=== PATIENT | female | born 1975 | race Hispanic/Latino ===

== ENCOUNTER 2016-07-24 12:58 | Outpatient (RCR) | payer OTHER ==
[2016-07-22 11:46] VITALS: BP 94/54
[2016-07-22] MEDS: IRON SUCROSE 300 MG/NS 250 ML (IVPB) IV SCH ×2 (12:24)
[~2016-07-24] VITALS: Ht 157.5 cm; Wt 50.8 kg
[~2016-07-24 12:58] MED LIST: BIRTH CONTROL PO; FERR325C PO; HYDR-757 PO; IBUP-15 PO; IBUP-1773 PO; NF-KET2% TOP; OMEP-10 PO; PNT40TEC PO; PRM25T PO
[2016-07-24 13:04] VITALS: BP 104/63
[2016-07-24] MEDS: IRON SUCROSE 300 MG/NS 250 ML (IVPB) IV SCH ×2 (13:22)
[2016-07-24 14:20] VITALS: BP 104/63
== END 2016-10-20 | disposition home or self-care (01) ==
LOC: SDC 12:58
PROVIDERS: ATTEND Nurse Practitioner Adult Health
DX: D50.9 Iron deficiency anemia, unspecified (principal)
CPT/HCPCS: 96365; 96366

== ENCOUNTER 2017-01-09 05:31 | Outpatient (CLI) | payer OTHER ==
[~2017-01-09] VITALS: Ht 157.5 cm; Wt 49.4 kg
[2017-01-09] MEDS ORDERED: TOPI50TA37 PO ×2 (13:41)
[2017-01-09] MEDS ORDERED: IRON1CAP21 PO ×2 (13:41)
[2017-01-09] MEDS ORDERED: PANT40TA3 PO ×2 (13:41)
== END 2017-01-09 13:59 ==
LOC: PREOP 05:31
PROVIDERS: ATTEND Surgery
DX: Z01.818 Encounter for other preprocedural examination (principal); K21.9 Gastro-esophageal reflux disease without esophagitis

== ENCOUNTER 2017-01-13 06:53 | Day surgery (SDC) | payer OTHER ==
[~2017-01-13] VITALS: Ht 157.5 cm; Wt 49.4 kg
[~2017-01-13 06:53] MED LIST changes: +IRON1CAP21 PO; +PANT40TA3 PO; +TOPI50TA37 PO
[2017-01-13] MEDS ORDERED: LACTATED RINGERS 1,000 ML IV STA (07:32)
--- NOTE | 2017-01-13 07:43 | Progress Note-Pre Operative ---
Pre-Operative Progress Note H&P Reviewed The H&P was reviewed, patient examined and no changes noted. Date Seen by Provider: Jan 13, 2017 Time Seen by Provider: 07:42 Date H&P Reviewed: Jan 13, 2017 Time H&P Reviewed: 07:42 Pre-Operative Diagnosis: gerd, dysphagia JEFFREY PEREZ DO Jan 13, 2017 07:43
[2017-01-13] MEDS ORDERED: HURRICAINE EXT TUBE (BENZOCAINE) XX PRN (07:45)
[2017-01-13 07:47] VITALS: BP 94/63
[2017-01-13] MEDS ORDERED: proPOfol 200 MG/20 ML (DIPRIVAN) VIAL IV ONE (08:26)
[2017-01-13] MEDS ORDERED: LIDOCAINE PF 2% 5 ML (XYLOCAINE) VIAL ONE (08:28)
--- NOTE | 2017-01-13 08:56 | Progress Note-Post Operative ---
Post-Operative Progess Note Surgeon (s)/Oracle Fusion Consultant (s) Surgeon JEFFREY PEREZ DO Oracle Fusion Consultant: na Pre-Operative Diagnosis gerd, dysphagia Post-Operative Diagnosis small hiatal hernia Procedure & Operative Findings Date of Procedure 01/13/17 Procedure Performed/Findings egd c biopsy antrum Anesthesia Type per appliquer Estimated Blood Loss Estimated blood loss (mL): scant Specimens/Packing Specimens Removed antrum JEFFREY PEREZ DO Jan 13, 2017 8:56 am
--- NOTE | 2017-01-13 08:57 | Discharge Inst-Simple/Standard ---
Discharge Inst-Standard Patient Instructions/Follow Up Plan of Care/Instructions/FU: 2 weeks [place]on Activity as Tolerated: Yes Discharge Diet: Regular Diet JEFFREY PEREZ DO Jan 13, 2017 8:57 am
[2017-01-13 09:15] VITALS: BP 107/71
[2017-01-13 09:45] VITALS: BP 101/66
[2017-01-13 10:10] VITALS: BP 101/66
--- NOTE | 2017-01-13 10:41 | OPERATIVE REPORT ---
DATE OF SERVICE: 01/13/2017 PREOPERATIVE DIAGNOSIS: Dysphagia, GERD. POSTOPERATIVE DIAGNOSIS: Small hiatal hernia. PROCEDURES: Esophagogastroduodenoscopy with biopsy of the antrum. SURGEON: Jeffery Simental DO ANESTHESIA: Per RESIDENT PHYSICIAN. ESTIMATED BLOOD LOSS: Scant. INDICATIONS: The patient is a 41-year-old female who was having some dysphagia and some reflux symptoms. She understands risks and benefits of the procedure and wished to proceed with procedure. Consent was signed in the chart. PROCEDURE: The patient was taken to the endoscopy suite, placed in left lateral recumbent position. Timeout was performed. Scope was inserted in mouth, down into esophagus, stomach and into the duodenum without difficulty. There are no polyps, masses or ulcerations within the duodenum. The scope was slowly retracted back into the stomach and was further insufflated. Has fairly normal appearance of the stomach. Biopsy of the antrum was obtained. Scope was retroflexed noting a small hiatal hernia. No other pathology noted. Scope was returned to its normal position, slowly withdrawn back into the esophagus. There are no erythematous changes, polyps, masses or ulcerations. Scope was slowly retracted back until completely removed, noting no other pathology. RECOMMENDATIONS: The patient will continue on Protonix. Will have her follow up in two weeks to discuss pathology. We will see how her symptoms are on pathology. Further recommendations pending those results. Job ID: [id number] DocumentID: [id number] Dictated Date: 01/13/2017 08:59:05 Wafer Batter Mixer Date: 01/13/2017 10:40:59 Dictated By: JEFFREY SIMENTAL DO
== END 2017-01-13 10:10 | disposition home or self-care (01) ==
LOC: ENDO 06:53
PROVIDERS: ATTEND Surgery
DX: K44.9 Diaphragmatic hernia without obstruction or gangrene (principal); K21.9 Gastro-esophageal reflux disease without esophagitis; Z79.899 Other long term (current) drug therapy
CPT/HCPCS: 84703

== ENCOUNTER 2017-07-22 05:38 | Outpatient (CLI) | payer OTHER ==
[~2017-07-22] VITALS: Ht 157.5 cm; Wt 49.4 kg
[~2017-07-22 05:38] MED LIST changes: -IBUP-15 PO; +IBUP-16 PO
== END 2017-07-22 15:53 ==
LOC: PREOP 05:38
PROVIDERS: ATTEND Surgery
DX: Z01.818 Encounter for other preprocedural examination (principal); K92.1 Melena

== ENCOUNTER 2017-07-28 08:09 | Day surgery (SDC) | payer OTHER ==
[~2017-07-28] VITALS: Ht 157.5 cm; Wt 49.4 kg
[2017-07-28] MEDS ORDERED: LACTATED RINGERS 1,000 ML IV STA (08:23)
[2017-07-28] MEDS ORDERED: LACTATED RINGERS 1,000 ML IV ONE (08:24)
[2017-07-28] MEDS ORDERED: LACTATED RINGERS 1,000 ML IV SCH (08:30)
[2017-07-28 08:37] VITALS: BP 100/66
[2017-07-28] MEDS ORDERED: MIDAZOLAM 2 MG/2 ML (VERSED) VIAL ONE (09:09)
[2017-07-28] MEDS ORDERED: PROPOFOL INJECTION 50 ML IV ONE (09:09)
--- NOTE | 2017-07-28 09:22 | Progress Note-Pre Operative ---
Pre-Operative Progress Note H&P Reviewed The H&P was reviewed, patient examined and no changes noted. Date Seen by Provider: Jul 28, 2017 Time Seen by Provider: 23:52 Date H&P Reviewed: Jul 28, 2017 Time H&P Reviewed: 23:52 Pre-Operative Diagnosis: blood in stool, anal fissure, abnormal ct finding JEFFREY PEREZ DO Jul 28, 2017 09:22
--- NOTE | 2017-07-28 10:03 | Progress Note-Post Operative ---
Post-Operative Progess Note Surgeon (s)/Professor Of Medicine (s) Surgeon JEFFREY PEREZ DO Professor Of Medicine: na Pre-Operative Diagnosis blood in stool, anal fissure, abnormal ct finding Post-Operative Diagnosis anal fissure post Procedure & Operative Findings Date of Procedure 07/28/17 Procedure Performed/Findings colonoscopy Anesthesia Type per corporation pilot Estimated Blood Loss Estimated blood loss (mL): na Specimens/Packing Specimens Removed na JEFFREY PEREZ DO Jul 28, 2017 10:03
[2017-07-28 10:05] VITALS: BP 91/55
--- NOTE | 2017-07-28 10:10 | Discharge Inst-Simple/Standard ---
Discharge Inst-Standard Patient Instructions/Follow Up Plan of Care/Instructions/FU: 2 weeks Hol[place] Continue Diltiazem cream as instructed. High fiber diet. Stool softner twice a day, Over the counter. Activity as Tolerated: Yes Discharge Diet: Regular Diet JEFFREY PEREZ DO Jul 28, 2017 10:10
[2017-07-28 10:35] VITALS: BP 102/62
[2017-07-28 10:50] VITALS: BP 102/62
--- NOTE | 2017-07-28 11:51 | Anesthesia-General Post-Op ---
MAC Patient Condition Mental Status/LOC: Same as Preop Cardiovascular: Satisfactory Nausea/Vomiting: Absent Respiratory: Satisfactory Pain: Controlled Complications: Absent Post Op Complications Complications None Follow Up Care/Instructions Patient Instructions None needed. Anesthesiology Discharge Order Discharge Order Patient is doing well, no complaints, stable vital signs, no apparent adverse anesthesia problems. No complications reported per nursing. RAFAEL FLEMING CRNA Jul 28, 2017 11:51
--- NOTE | 2017-07-28 13:17 | OPERATIVE REPORT ---
DATE OF SERVICE: 07/28/2017 PREOPERATIVE DIAGNOSES: Anal fissure, abnormal CT scan findings of colon and blood in stools. POSTOPERATIVE DIAGNOSIS: Anal fissure. PROCEDURE: Colonoscopy. SURGEON: Jeffrey Simental DO ANESTHESIA: Per PLASTER MODEL AND MOLD MAKER. ESTIMATED BLOOD LOSS: None. COMPLICATIONS: None. INDICATIONS: The patient is a 41-year-old female, who has been having problems with anal fissure and blood in stools. She had a recent CT scan demonstrating some abnormality of the ascending colon, but she understands risks and benefits of procedure and wished to proceed with procedure. Consent was on chart. DESCRIPTION OF PROCEDURE: The patient was taken to the endoscopy suite, placed in left lateral recumbent position. Timeout was performed. Digital rectal exam was performed. There was a posterior anal fissure present with also skin tag formation. No other palpable polyps, masses or ulcerations. Scope was inserted in the rectum and advanced all the way to the cecum with minimal difficulty. Prep was adequate. Scope was slowly retracted back. There are no polyps, mass ulcerations in the cecum, ascending, transverse, descending and sigmoid colon. In the rectum, the scope was retroflexed noting small tag. No other pathology. Scope was returned to its normal position, slowly withdrawn to completely remove. No other pathology noted when scope was completely removed. The patient tolerated procedure well without complications and taken to recovery room in stable condition. RECOMMENDATIONS: The patient will recommend high-fiber diet and stool softener. Continue on diltiazem cream. We will have followup in 2 weeks to discuss how she is doing at that point and if further intervention needed. Job ID: [id number] DocumentID: [id number] Dictated Date: 07/28/2017 10:14:14 Interactive Media Director Date: 07/28/2017 13:16:06 Dictated By: JEFFREY SIMENTAL DO
== END 2017-07-28 10:51 | disposition home or self-care (01) ==
LOC: ENDO 08:09
PROVIDERS: ATTEND Surgery
DX: K60.2 Anal fissure, unspecified (principal); K64.4 Residual hemorrhoidal skin tags; D64.9 Anemia, unspecified; Z79.899 Other long term (current) drug therapy
CPT/HCPCS: 84703

== ENCOUNTER 2017-10-15 05:33 | Outpatient (CLI) | payer OTHER ==
[~2017-10-15] VITALS: Ht 157.5 cm; Wt 52.2 kg
[2017-10-15] MEDS ORDERED: CETI10TA17 PO (10:22)
[2017-10-22] MEDS ORDERED: ACHD5005 PO (11:08)
[2017-10-22] MEDS ORDERED: IBUP-1773 PO (11:08)
== END 2017-10-15 10:37 ==
LOC: PREOP 05:33
PROVIDERS: ATTEND Obstetrics & Gynecology
DX: Z01.818 Encounter for other preprocedural examination (principal); N93.9 Abnormal uterine and vaginal bleeding, unspecified

== ENCOUNTER 2017-10-22 10:01 | Day surgery (SDC) | payer OTHER ==
[~2017-10-22] VITALS: Ht 157.5 cm; Wt 52.2 kg
[~2017-10-22 10:01] MED LIST changes: +CETI10TA17 PO
--- OUTSIDE RECORDS SUMMARY | 2017-10-22 10:06 | XMS REPORT | Continuity of Care Document ---
Author Author [facility] Organization [facility] Address Unknown Phone Unavailable Allergies Active Description Code Type Severity Reaction Onset Reported/Identified Relationship to Patient Clinical Status Yes No Known Drug Allergies [id number] Drug Allergy Unknown N/A 01/04/2014 Yes sumatriptan [id number] Drug Allergy Unknown throat felt swo 12/06/2014 Medications There is no data. Problems Date Dx Coded Attending Type Code Diagnosis Diagnosed By 03/09/2014 NOÉ JOSHUA DO Ot 626.9 MENSTRUAL DISORDER NOS 03/09/2014 NOÉ JOSHUA DO Ot 793.5 NOSP (ABN) FINDINGS ON RADIOLOGICAL OT 04/21/2014 Ot 626.8 04/21/2014 Ot 793.5 04/21/2014 Ot V72.63 04/21/2014 Ot V74.8 04/21/2014 Ot 626.8 04/21/2014 Ot 793.5 04/21/2014 Ot V72.63 04/21/2014 Ot V74.8 04/21/2014 NOÉ JOSHUA DO Ot 625.0 05/19/2014 NOÉ JOSHUA DO Ot 625.0 05/19/2014 Ot 626.8 05/19/2014 Ot 793.5 05/19/2014 Ot V72.63 05/19/2014 Ot V74.8 11/28/2014 NOÉ JOSHUA DO Ot 625.0 11/28/2014 Ot 626.8 11/28/2014 Ot 793.5 11/28/2014 Ot V72.63 11/28/2014 Ot V74.8 12/01/2014 NOÉ JOSHUA DO Ot 625.0 12/01/2014 Ot 626.8 12/01/2014 Ot 793.5 12/01/2014 Ot V72.63 12/01/2014 Ot V74.8 12/01/2014 NOÉ JOSHUA DO Ot 625.0 12/01/2014 Ot 626.8 12/01/2014 Ot 793.5 12/01/2014 Ot V72.63 12/01/2014 Ot V74.8 12/05/2014 NOÉ JOSHUA DO Ot 621.2 12/05/2014 NOÉ JOSHUA DO Ot 626.9 12/07/2014 NOÉ JOSHUA DO Ot 625.8 FEM GENITAL SYMPTOMS NEC 12/07/2014 NOÉ JOSHUA DO Ot 626.9 MENSTRUAL DISORDER NOS 12/15/2014 NOÉ JOSHUA DO Ot 625.8 12/15/2014 NOÉ JOSHUA DO Ot V72.63 12/15/2014 NOÉ JOSHUA DO Ot V74.8 02/05/2015 NOÉ JOSHUA DO Ot 621.2 02/05/2015 NOÉ JOSHUA DO Ot 626.9 02/05/2015 NOÉ JOSHUA DO Ot 625.8 02/05/2015 NOÉ JOSHUA DO Ot V72.63 02/05/2015 NOÉ JOSHUA DO Ot V74.8 03/14/2016 NOÉ JOSHUA DO Ot 625.0 DYSPAREUNIA 03/14/2016 Ot 626.8 MENSTRUAL DISORDER NEC 03/14/2016 Ot 793.5 NOSP (ABN) FINDINGS ON RADIOLOGICAL OT 03/14/2016 Ot V72.63 PRE- PROCEDURAL LABORATORY EXAMINATION 03/14/2016 Ot V74.8 SCREEN- BACTERIAL DIS NEC 03/14/2016 NOÉ JOSHUA DO Ot 621.2 HYPERTROPHY OF UTERUS 03/14/2016 NOÉ JOSHUA DO Ot 626.9 MENSTRUAL DISORDER NOS 03/14/2016 NOÉ JOSHUA DO Ot 625.8 FEM GENITAL SYMPTOMS NEC 03/14/2016 NOÉ JOSHUA DO Ot V72.63 PRE-PROCEDURAL LABORATORY EXAMINATION 03/14/2016 NOÉ JOSHUA DO Ot V74.8 SCREEN-BACTERIAL DIS NEC 03/14/2016 NOÉ JOSHUA DO Ot 625.0 DYSPAREUNIA 03/14/2016 Ot 626.8 MENSTRUAL DISORDER NEC 03/14/2016 Ot 793.5 NOSP (ABN) FINDINGS ON RADIOLOGICAL OT 03/14/2016 Ot V72.63 PRE- PROCEDURAL LABORATORY EXAMINATION 03/14/2016 Ot V74.8 SCREEN- BACTERIAL DIS NEC 03/14/2016 NOÉ JOSHUA DO Ot 621.2 HYPERTROPHY OF UTERUS 03/14/2016 NOÉ JOSHUA DO Ot 626.9 MENSTRUAL DISORDER NOS 03/14/2016 NOÉ JOSHUA DO Ot 625.8 FEM GENITAL SYMPTOMS NEC 03/14/2016 NOÉ JOSHUA DO Ot V72.63 PRE-PROCEDURAL LABORATORY EXAMINATION 03/14/2016 NOÉ JOSHUA DO Ot V74.8 SCREEN-BACTERIAL DIS NEC 03/17/2016 JANN DAVIS MANAGER CARDIAC Ot R30.0 DYSURIA 03/17/2016 JANN DAVIS MANAGER CARDIAC Ot R30.0 DYSURIA 03/18/2016 JANN DAVIS MANAGER CARDIAC Ot R30.0 DYSURIA 03/31/2016 JANN DAVIS MANAGER CARDIAC Ot R30.0 DYSURIA 03/31/2016 JANN DAVIS MANAGER CARDIAC Ot R30.0 DYSURIA 07/22/2016 NOÉ JOSHUA DO Ot 625.0 DYSPAREUNIA 07/22/2016 Ot 626.8 MENSTRUAL DISORDER NEC 07/22/2016 Ot 793.5 NOSP (ABN) FINDINGS ON RADIOLOGICAL OT 07/22/2016 Ot V72.63 PRE- PROCEDURAL LABORATORY EXAMINATION 07/22/2016 Ot V74.8 SCREEN- BACTERIAL DIS NEC 07/22/2016 NOÉ JOSHUA DO Ot 621.2 HYPERTROPHY OF UTERUS 07/22/2016 NOÉ JOSHUA DO Ot 626.9 MENSTRUAL DISORDER NOS 07/22/2016 NOÉ JOSHUA DO Ot 625.8 FEM GENITAL SYMPTOMS NEC 07/22/2016 NOÉ JOSHUA DO Ot V72.63 PRE-PROCEDURAL LABORATORY EXAMINATION 07/22/2016 NOÉ JOSHUA DO Ot V74.8 SCREEN-BACTERIAL DIS NEC 07/22/2016 JANN DAVIS MANAGER CARDIAC Ot R30.0 DYSURIA 07/24/2016 VALDEMAR VALDIVIA COAGULATING OPERATOR Ot D50.9 IRON DEFICIENCY ANEMIA, UNSPECIFIED 07/24/2016 VALDEMAR VALDIVIA COAGULATING OPERATOR Ot D50.9 IRON DEFICIENCY ANEMIA, UNSPECIFIED 07/24/2016 VALDEMAR VALDIVIA COAGULATING OPERATOR Ot D50.9 IRON DEFICIENCY ANEMIA, UNSPECIFIED 10/20/2016 VALDEMAR VALDIVIA COAGULATING OPERATOR Ot D50.9 IRON DEFICIENCY ANEMIA, UNSPECIFIED 10/21/2016 VALDEMAR VALDIVIA COAGULATING OPERATOR Ot D50.9 IRON DEFICIENCY ANEMIA, UNSPECIFIED 12/24/2016 NOÉ JOSHUA DO Ot 625.0 DYSPAREUNIA 12/24/2016 Ot 626.8 MENSTRUAL DISORDER NEC 12/24/2016 Ot 793.5 NOSP (ABN) FINDINGS ON RADIOLOGICAL OT 12/24/2016 Ot V72.63 PRE- PROCEDURAL LABORATORY EXAMINATION 12/24/2016 Ot V74.8 SCREEN- BACTERIAL DIS NEC 12/24/2016 NOÉ JOSHUA DO Ot 621.2 HYPERTROPHY OF UTERUS 12/24/2016 NOÉ JOSHUA DO S Ot 626.9 MENSTRUAL DISORDER NOS 12/24/2016 NOÉ JOSHUA DO Ot 625.8 FEM GENITAL SYMPTOMS NEC 12/24/2016 NOÉ JOSHUA DO Ot V72.63 PRE-PROCEDURAL LABORATORY EXAMINATION 12/24/2016 NOÉ JOSHUA DO Ot V74.8 SCREEN-BACTERIAL DIS NEC 12/24/2016 JANN DAVIS APRN Ot R30.0 DYSURIA 12/24/2016 VALDEMAR VALDIVIA Ot D50.9 IRON DEFICIENCY ANEMIA, UNSPECIFIED 01/09/2017 JEFFREY PEREZ DO Ot K21.9 GASTRO-ESOPHAGEAL REFLUX DISEASE WITHOUT 01/09/2017 JEFFREY PEREZ DO D Ot Z01.818 ENCOUNTER FOR OTHER PREPROCEDURAL EXAMIN 01/12/2017 PEREZJEFFREY WORTHINGTON DO Ot K21.9 GASTRO-ESOPHAGEAL REFLUX DISEASE WITHOUT 01/12/2017 PEREZJEFFREY WORTHINGTON DO Ot Z01.818 ENCOUNTER FOR OTHER PREPROCEDURAL EXAMIN 01/13/2017 JEFFREY PEREZ DO Ot K21.9 GASTRO-ESOPHAGEAL REFLUX DISEASE WITHOUT 01/13/2017 JEFFREY PEREZ DO Ot K44.9 DIAPHRAGMATIC HERNIA WITHOUT OBSTRUCTION 01/13/2017 JEFFREY PEREZ DO Ot Z79.899 OTHER HAMMERSMITH HELPER (CURRENT) DRUG THERAPY 03/04/2017 NOÉ JOSHUA DO Ot 625.0 DYSPAREUNIA 03/04/2017 Ot 626.8 MENSTRUAL DISORDER NEC 03/04/2017 Ot 793.5 NOSP (ABN) FINDINGS ON RADIOLOGICAL OT 03/04/2017 Ot V72.63 PRE- PROCEDURAL LABORATORY EXAMINATION 03/04/2017 Ot V74.8 SCREEN- BACTERIAL DIS NEC 03/04/2017 NOÉ JOSHUA DO Ot 621.2 HYPERTROPHY OF UTERUS 03/04/2017 NOÉ JOSHUA DO Ot 626.9 MENSTRUAL DISORDER NOS 03/04/2017 NOÉ JOSHUA DO Ot 625.8 FEM GENITAL SYMPTOMS NEC 03/04/2017 NOÉ JOSHUA DO Ot V72.63 PRE-PROCEDURAL LABORATORY EXAMINATION 03/04/2017 NOÉ JOSHUA DO Ot V74.8 SCREEN-BACTERIAL DIS NEC 03/04/2017 JANN DAVIS MANAGER CARDIAC Ot R30.0 DYSURIA 03/04/2017 VALDEMAR VALDIVIA COAGULATING OPERATOR Ot D50.9 IRON DEFICIENCY ANEMIA, UNSPECIFIED 05/11/2017 NOÉ JOSHUA DO Ot D50.0 IRON DEFICIENCY ANEMIA SECONDARY TO BLOO 05/11/2017 NOÉ JOSHUA DO Ot N92.0 EXCESSIVE AND FREQUENT MENSTRUATION WITH 07/22/2017 JEFFREY PEREZ DO Ot K92.1 MELENA 07/22/2017 JEFFREY PEREZ DO Ot Z01.818 ENCOUNTER FOR OTHER PREPROCEDURAL EXAMIN 07/23/2017 JEFFREY PEREZ DO Ot K92.1 MELENA 07/23/2017 JEFFREY PEREZ DO Ot Z01.818 ENCOUNTER FOR OTHER PREPROCEDURAL EXAMIN 07/28/2017 NOÉ JOSHUA DO Ot 625.0 DYSPAREUNIA 07/28/2017 Ot 626.8 MENSTRUAL DISORDER NEC 07/28/2017 Ot 793.5 NOSP (ABN) FINDINGS ON RADIOLOGICAL OT 07/28/2017 Ot V72.63 PRE- PROCEDURAL LABORATORY EXAMINATION 07/28/2017 Ot V74.8 SCREEN- BACTERIAL DIS NEC 07/28/2017 NOÉ JOSHUA DO Ot 621.2 HYPERTROPHY OF UTERUS 07/28/2017 NOÉ JOSHUA DO Ot 626.9 MENSTRUAL DISORDER NOS 07/28/2017 NOÉ JOSHUA DO Ot 625.8 FEM GENITAL SYMPTOMS NEC 07/28/2017 NOÉ JOSHUA DO Ot V72.63 PRE-PROCEDURAL LABORATORY EXAMINATION 07/28/2017 NOÉ JOSHUA DO Ot V74.8 SCREEN-BACTERIAL DIS NEC 07/28/2017 JANN DAVIS MANAGER CARDIAC Ot R30.0 DYSURIA 07/28/2017 VALDEMAR VALDIVIA COAGULATING OPERATOR Ot D50.9 IRON DEFICIENCY ANEMIA, UNSPECIFIED 07/28/2017 NOÉ JOSHUA DO Ot D50.0 IRON DEFICIENCY ANEMIA SECONDARY TO BLOO 07/28/2017 NOÉ JOSHUA DO Ot N92.0 EXCESSIVE AND FREQUENT MENSTRUATION WITH 07/28/2017 PEREZ DO, JEFFREY D Ot D64.9 ANEMIA, UNSPECIFIED 07/28/2017 PEREZ DO, JEFFREY D Ot K60.2 ANAL FISSURE, UNSPECIFIED 07/28/2017 PEREZ DO, JEFFREY D Ot K64.4 RESIDUAL HEMORRHOIDAL SKIN TAGS 07/28/2017 PEREZ DO, JEFFREY D Ot Z79.899 OTHER HAMMERSMITH HELPER (CURRENT) DRUG THERAPY 07/29/2017 PEREZ DO, JEFFREY D Ot D64.9 ANEMIA, UNSPECIFIED 07/29/2017 PEREZ DO, JEFFREY D Ot K60.2 ANAL FISSURE, UNSPECIFIED 07/29/2017 PEREZ DO, JEFFREY D Ot K64.4 RESIDUAL HEMORRHOIDAL SKIN TAGS 07/29/2017 PEREZ DO, JEFFREY D Ot Z79.899 OTHER HAMMERSMITH HELPER (CURRENT) DRUG THERAPY 07/29/2017 PEREZ DO, JEFFREY D Ot D64.9 ANEMIA, UNSPECIFIED 07/29/2017 PEREZ DO, JEFFREY D Ot K60.2 ANAL FISSURE, UNSPECIFIED 07/29/2017 PEREZ DO, JEFFREY D Ot K64.4 RESIDUAL HEMORRHOIDAL SKIN TAGS 07/29/2017 PEREZ DO, JEFFREY D Ot Z79.899 OTHER HAMMERSMITH HELPER (CURRENT) DRUG THERAPY 07/30/2017 PEREZ DO, JEFFREY D Ot D64.9 ANEMIA, UNSPECIFIED 07/30/2017 PEREZ DO, JEFFREY D Ot K60.2 ANAL FISSURE, UNSPECIFIED 07/30/2017 PEREZ DO, JEFFREY D Ot K64.4 RESIDUAL HEMORRHOIDAL SKIN TAGS 07/30/2017 PEREZ DO, JEFFREY D Ot Z79.899 OTHER RETIREMENT (CURRENT) DRUG THERAPY 08/03/2017 PEREZ DO, JEFFREY D Ot D64.9 ANEMIA, UNSPECIFIED 08/03/2017 PEREZ DO, JEFFREY D Ot K60.2 ANAL FISSURE, UNSPECIFIED 08/03/2017 PEREZ DO, JEFFREY D Ot K64.4 RESIDUAL HEMORRHOIDAL SKIN TAGS 08/03/2017 PEREZ DO, JEFFREY D Ot Z79.899 OTHER HAMMERSMITH HELPER (CURRENT) DRUG THERAPY 10/15/2017 VALDEMAR VALDIVIA Ot D50.9 IRON DEFICIENCY ANEMIA, UNSPECIFIED 10/16/2017 NOÉ JOSHUA DO Ot N93.9 ABNORMAL UTERINE AND VAGINAL BLEEDING, U 10/16/2017 NOÉ JOSHUA DO Ot Z01.818 ENCOUNTER FOR OTHER PREPROCEDURAL EXAMIN Procedures There is no data. Results Test Result Range Urine beta human chorionic gonadotropin (hCG) measurement - 01/13/17 07:36 Urine beta human chorionic gonadotropin (hCG) measurement NEGATIVE NEGATIVE RED CELLS LEUKO REDUCED AS1 - 03/04/17 08:58 RED CELLS LEUKO REDUCED AS1 TRANSFUSED 03/04/17 1031 NRG Blood type T Indirect antibody screen panel - 03/04/17 08:58 ABO+Rh group OP NRG Transfusion band number [id number] NRG Blood group antibody screen NEGATIVE NRG Venous blood hemoglobin measurement (mass/volume) - 03/04/17 13:20 Venous blood hemoglobin measurement (mass/volume) 8.0 g/dL 11.5-16.0 Whole blood hemoglobin and hematocrit panel - 03/04/17 16:25 Venous blood hemoglobin measurement (mass/volume) 9.9 g/dL 11.5-16.0 Blood hematocrit (volume fraction) 32 % 35-52 Urine beta human chorionic gonadotropin (hCG) measurement - 07/28/17 08:30 Urine beta human chorionic gonadotropin (hCG) measurement NEGATIVE NEGATIVE Encounters ACCT No. Visit Date/Time Discharge Status Pt. Type Provider Facility Loc./Unit Complaint [id number] 10/15/2017 05:33:00 10/15/2017 10:37:00 DIS Outpatient NOÉ JOSHUA DO [facility] PREOP INTRAUTERINE MASS, AUB [id number] 07/28/2017 08:09:00 07/28/2017 10:51:00 DIS Outpatient PREEZ JEFFREY SAEED [facility] ENDO BLOOD IN STOOLS/ ABNORMAL CT FINDINGS [id number] 07/22/2017 05:38:00 07/22/2017 15:53:00 DIS Outpatient JEFFREY PEREZ DO [facility] PREOP COLONOSCOPY [id number] 03/12/2017 07:30:00 03/12/2017 23:59:59 CLS Preadmit NOÉ JOSHUA DO [facility] ABNORMAL UTERINE BLEEDING ; UTERINE FIBROIDS; [id number] 03/09/2017 12:00:00 03/09/2017 23:59:59 CLS Preadmit TRES SAEED NOÉ Polo [facility] PREOP ABNORMAL UTERINE BLEEDING; UTERINE FIBROIDS; [id number] 03/04/2017 08:33:00 03/04/2017 23:59:59 CLS Outpatient NOÉ JOSHUA DO [facility] ANEMIA [id number] 01/13/2017 06:53:00 01/13/2017 10:10:00 DIS Outpatient JEFFREY PEREZ DO D [facility] ENDO REFLUX [id number] 01/09/2017 05:31:00 01/09/2017 13:59:00 DIS Outpatient JEFFREY PEREZ DO [facility] PREOP REFLUX [id number] 10/21/2016 00:18:00 10/21/2016 23:59:59 CLS Preadmit VALDEMAR VALDIVIA COAGULATING OPERATOR [facility] ANEMIA [id number] 07/24/2016 12:58:00 10/20/2016 00:01:00 DIS Outpatient VALDEMAR VALDIVIA COAGULATING OPERATOR [facility] ANEMIA [id number] 03/14/2016 12:14:00 03/14/2016 23:59:59 CLS Outpatient JANN DAVIS APRN [facility] RAD R30.0 [id number] 12/07/2014 08:40:00 12/07/2014 15:40:00 DIS Outpatient NOÉ JOSHUA DO [facility] UTERINE MASS [id number] 12/06/2014 12:43:00 12/06/2014 23:59:59 CLS Outpatient NOÉ JOSHUA DO [facility] PREOP UTERINE MASS [id number] 12/01/2014 10:44:00 12/01/2014 23:59:59 CLS Outpatient NOÉ JOSHUA DO [facility] RAD UTERINE ENLARGEMENT AUB [id number] 03/09/2014 08:29:00 03/09/2014 14:20:00 DIS Outpatient NOÉ JOSHUA DO [facility] THICKENED ENDOMETRIUM [id number] 02/03/2014 15:31:00 02/03/2014 23:59:59 CLS Outpatient NOÉ JOSHUA DO [facility] RAD CHRONIC FEMALE PELVIC PAIN [id number] 01/04/2014 10:00:00 01/04/2014 23:59:59 CLS Outpatient [id number] 12/16/2013 12:03:00 12/16/2013 23:59:59 CLS Outpatient [id number] 10/22/2017 12:00:00 PEN Preadmit NOÉ JOSHUA DO [facility] INTRAUTERINE MASS,AUB [id number] 03/07/2014 14:29:00 Document Registration [id number] 03/07/2014 14:29:00 03/07/2014 23:59:59 CLS Outpatient
[2017-10-22 10:34] LABS: BASOPHILS # (AUTO) 0.1 10^3/uL (0.0-0.1); BASOPHILS % (AUTO) 1 % (0-10); EOSINOPHILS # (AUTO) 0.1 10^3/uL (0.0-0.3); EOSINOPHILS % (AUTO) 2 % (0-10); HEMATOCRIT 27 % (35-52); HEMOGLOBIN 8.6 G/DL (11.5-16.0); LYMPHOCYTES # (AUTO) 1.5 X 10^3 (1.0-4.0); LYMPHOCYTES % (AUTO) 24 % (12-44); MEAN CORPUSCULAR HEMOGLOBIN 23 PG (25-34); MEAN CORPUSCULAR HGB CONC 32 G/DL (32-36); MEAN CORPUSCULAR VOLUME 73 FL (80-99); MEAN PLATELET VOLUME 10.9 FL (7.4-10.4); MONOCYTES # (AUTO) 0.5 X 10^3 (0.0-1.0); MONOCYTES % (AUTO) 8 % (0-12); NEUTROPHILS # (AUTO) 4.1 X 10^3 (1.8-7.8); NEUTROPHILS % (AUTO) 66 % (42-75); PLATELET COUNT 283 10^3/uL (130-400); RED BLOOD COUNT 3.74 10^6/uL (4.35-5.85); RED CELL DISTRIBUTION WIDTH 18.7 % (10.0-14.5); WHITE BLOOD COUNT 6.3 10^3/uL (4.3-11.0)
[2017-10-22] MEDS ORDERED: LACTATED RINGERS 1,000 ML IV PRN (10:34)
[2017-10-22] MEDS ORDERED: BUPIVACAINE 0.25% 30 ML (SENSORCAINE) VIAL ONE (10:40)
[2017-10-22 10:42] VITALS: BP 105/60
[2017-10-22] MEDS ORDERED: D5 LR IV SOLUTION 1,000 ML IV SCH (11:06)
--- NOTE | 2017-10-22 11:06 | History & Physical-Surgical ---
HPO-Surgical History of Present Illness Chief Complaint: AUB, intrauterine mass, hx of Acute blood loss anemia Diagnosis/Surgical Indication: INTRAUTERINE MASS Procedure: D&C, HYSTERECTOMY Date of Surgery: Oct 22, 2017 Weight (Pounds): 115 Weight (Ounces): 0.0 Height (Feet): 5 Height (Inches): 2.00 Allergies and Home Medications Allergies Coded Allergies: sumatriptan (Unverified Allergy, Severe, throat felt swollen, 10/15/17) Home Medications Cetirizine HCl 10 Mg Tablet, 10 MG PO DAILY, (Reported) Iron Ps Cmplx/Vit B12/FA 1 Each Capsule, 1 EACH PO DAILY, (Reported) Pantoprazole Sodium 40 Mg Tablet.dr, 40 MG PO DAILY, (Reported) Topiramate 50 Mg Tablet, 50 MG PO BID, (Reported) Patient Home Medication List Home Medication List Reviewed: Yes Past Cmjgcbm-Otaskr-Xspcko Hx Patient Social History Alcohol Use: Denies Use Recreational Drug Use: Yes Smoking Status: Never a Smoker Recent Foreign Travel: No Contact w/other who traveled: No Recent Hopitalizations: No Recent Infectious Disease Expo: No Seasonal Allergies Seasonal Allergies: Yes Neurological Headaches /Migraines Reproductive System Hx Reproductive Disorders: Yes (INTRAUTERINE MASS) Sexually Transmitted Disease: No HIV/AIDS: No Gastrointestinal Gastroesophageal Reflux HEENT Loss of Vision: Bilateral Hearing Impairment: Denies Blood Transfusions Adverse Reaction to a Blood Tr: No (HAS HAD BLOOD WITH NO REACTION) Exam Vital Signs Vital Signs 10/22/17 10:42 Temp 97.8 Pulse 76 Resp 18 B/P (MAP) 105/60 (75) Pulse Ox 100 O2 Delivery Room Air Capillary Refill : Labs Laboratory Tests Test 10/22/17 10:00 10/22/17 10:25 Range/Units Urine Test NEGATIVE NEGATIVE White Blood Count 6.3 4.3-11.0 10^3/uL Red Blood Count 3.74 L 4.35-5.85 10^6/uL Hemoglobin 8.6 L 11.5-16.0 G/DL Hematocrit 27 L 35-52 % Mean Corpuscular Volume 73 L 80-99 FL Mean Corpuscular Hemoglobin 23 L 25-34 PG Mean Corpuscular Hemoglobin Concent 32 32-36 G/DL Red Cell Distribution Width 18.7 H 10.0-14.5 % Platelet Count 283 130-400 10^3/uL Mean Platelet Volume 10.9 H 7.4-10.4 FL Neutrophils (%) (Auto) 66 42-75 % Lymphocytes (%) (Auto) 24 12-44 % Monocytes (%) (Auto) 8 0-12 % Eosinophils (%) (Auto) 2 0-10 % Basophils (%) (Auto) 1 0-10 % Neutrophils # (Auto) 4.1 1.8-7.8 X 10^3 Lymphocytes # (Auto) 1.5 1.0-4.0 X 10^3 Monocytes # (Auto) 0.5 0.0-1.0 X 10^3 Eosinophils # (Auto) 0.1 0.0-0.3 10^3/uL Basophils # (Auto) 0.1 0.0-0.1 10^3/uL General Appearance: Alert, Oriented X3 HEENT: Atraumatic Respiratory: Clear to Auscultation Cardiovascular: Regular Rate Abdominal: Normal Bowel Sounds Extremities: No Clubbing, No Cyanosis Skin: No Rashes Neuro: Normal Gait Psych/Mental Status: Mental Status NL Assessment/Plan Assessment and Plan 42 yo female with AUB Enlarging bilobular intrauterine mass Admission Diagnosis Intrauterine mass Admission Status: Other (Same Day Surgery) NOÉ JOSHUA DO Oct 22, 2017 11:06 am
[2017-10-22] MEDS ORDERED: IBUP-1773 PO (11:08)
[2017-10-22] MEDS ORDERED: ACHD5005 PO (11:08)
--- NOTE | 2017-10-22 11:09 | Discharge Inst-Women's Service ---
Discharge Inst-Women's Serv Depart Medication/Instructions New, Converted or Re-Newed RX: RX on Chart Consults/Follow Up Additional Follow Up: Yes Orders/Referrals Dr. Joshua in 2-3 weeks Activity Activity: Activity as Tolerated Driving Instructions: You May Drive NO SMOKING: NO SMOKING Nothing Inside Vagina: No Douching, No Taylor, No Tampons Diet Discharge Diet: No Restrictions Symptoms to Report to : Bleeding Excessive, Pain Increased, Fever Over 101 Degrees F, Vaginal Bleeding Increase, Questions/Concerns For Any Problems or Questions: Contact Your Physician Skin/Wound Care Bathing Instructions: Shower (x 2 weeks) NOÉ JOSHUA DO Oct 22, 2017 11:09 am
[2017-10-22] MEDS ORDERED: LIDOCAINE PF 2% 5 ML (XYLOCAINE) VIAL ONE (11:15)
[2017-10-22] MEDS ORDERED: ONDANSETRON 4 MG/2 ML (SDV) Z0FRAN ONE (11:15)
[2017-10-22] MEDS ORDERED: KETOROLAC 30 MG/ML VIAL IVP ONE (11:15)
[2017-10-22] MEDS ORDERED: SEVOFLURANE (ULTANE) 15 ML INHAL SOLN ONE ×3 (11:15→12:16)
[2017-10-22] MEDS ORDERED: ONDANSETRON 4 MG/2 ML (SDV) Z0FRAN IVP PRN ×2 (11:15→12:30)
[2017-10-22] MEDS ORDERED: proPOfol 200 MG/20 ML (DIPRIVAN) VIAL IV ONE (11:15)
[2017-10-22] MEDS ORDERED: HYDROcodone/APAP 5 MG/325 MG (LORTAB) TAB PO PRN (11:15)
[2017-10-22] MEDS ORDERED: DEXAMETHASONE 10 MG/ML (DECADRON) 1 ML VIAL ONE (11:15)
[2017-10-22] MEDS ORDERED: fentaNYL INJECTION 100 MCG/2 ML AMP ONE (11:16)
[2017-10-22] MEDS ORDERED: MIDAZOLAM 2 MG/2 ML (VERSED) VIAL ONE (11:16)
[2017-10-22] MEDS ORDERED: KETOROLAC 30 MG/ML VIAL ONE (12:16)
[2017-10-22] MEDS ORDERED: morphine INJ 10 MG/ML 1ML (SYR OR VIAL) IVP PRN (12:30)
[2017-10-22] MEDS ORDERED: HYDROmorphone 1 MG/ML (DILAUDID) 1 ML SYRINGE IV PRN (12:30)
[2017-10-22] MEDS ORDERED: MEPERIDINE (DEMEROL) INJ 50 MG/ML IVP PRN (12:30)
--- NOTE | 2017-10-22 12:45 | Anesthesia-General Post-Op ---
General Patient Condition Mental Status/LOC: Same as Preop Cardiovascular: Satisfactory Nausea/Vomiting: Absent Respiratory: Satisfactory Pain: Controlled Complications: Absent Post Op Complications Complications None Follow Up Care/Instructions Patient Instructions None needed. Anesthesia/Patient Condition Patient Condition Patient is doing well, no complaints, stable vital signs, no apparent adverse anesthesia problems. No complications reported per nursing. SIRENA MCKNIGHT CRNA Oct 22, 2017 12:45
[2017-10-22 13:15] VITALS: BP 96/53
[2017-10-22 13:45] VITALS: BP 97/59
[2017-10-22 14:15] VITALS: BP 102/60
[2017-10-22 14:40] VITALS: BP 102/60
--- NOTE | 2017-10-23 02:27 | OPERATIVE REPORT ---
DATE OF SERVICE: 10/22/2017 PREOPERATIVE DIAGNOSES: 1. A 42-year-old female with heavy abnormal uterine bleeding. 2. Intrauterine mass. POSTOPERATIVE DIAGNOSES: 1. A 42-year-old female with heavy abnormal uterine bleeding. 2. Intrauterine mass. PROCEDURE: D and C, hysteroscopy. SURGEON: Noé Joshua D.O. ANESTHESIA: General endotracheal. ESTIMATED BLOOD LOSS: Minimal. URINE OUTPUT: 30 mL. FLUIDS: 1250 mL of lactated Ringer solution. FINDINGS: This is a large what appears to be submucosal fibroid within the endometrial cavity. Grossly normal appearing cervix and vagina and external female genitalia. SPECIMENS SENT: Endometrial curettings. INDICATIONS FOR PROCEDURE: This 42-year-old female is a patient that I had seen in the past for heavy bleeding and she is found to have what appeared to be submucosal fibroid; however, he continues to have heavy bleeding. She has been admitted and had blood transfusions and had acute blood loss anemia secondary to the amount of bleeding she is having. She was unwilling to proceed with hysterectomy once it was planned in the past and did not show up for procedure; however, she comes back to my office more recently in the last month with continued heavy bleeding and follow up ultrasound showing this mass is enlarging. Therefore, we discussed at a minimum doing endometrial sampling in the form of D and C as well as a chance to visualize this mass directly with hysteroscopy. Risks of the procedure were discussed with the patient in detail and after all of her questions were answered with her present, consent was obtained in the preoperative area and the patient was taken to the operating room. OPERATIVE REPORT IN DETAIL: Once in the operating room, general anesthesia was found to be adequate. She was placed in dorsal lithotomy position, prepped and draped in normal sterile fashion. A straight catheterization was used to drain the bladder. Clear urine was noted. A weighted speculum was inserted into the patient's vagina. A right angle retractor was used to visualize the cervix, grasped at 12 o'clock position using a long Allis clamp. I then performed a paracervical block at 3 and 9 o'clock positions on the cervix using 0.25% Marcaine, 5 mL were used at each injection site. Care was taken to aspirate before injecting. I then gently dilated the cervix to a maximum dilatation of 8 mm using Hegar dilators and then placed a hysteroscope within the intrauterine cavity. Using normal saline as my visual medium, I am able to visualize a very large submucosal fibroid encasing and engulfing almost the entirety of the endometrial cavity. It appears to be coming off of an anterior right margin of the uterus; however, I cannot tell if it is fundal or from the right side of the uterus. Otherwise, the endometrial lining appears normal. Bilateral tubal ostia were able to be identified; however, I do have to go around the fibroid in order to see the right tubal ostium. Once I evaluated this, which appears to have smooth planes and wide appearance such as a submucosal fibroid would, I then removed the hysteroscope and proceeded with endometrial sampling using a medium sized curette. Small to moderate amount of tissue was collected, after which there was no active bleeding noted. All other instruments were removed from the patient's vagina. I decided not to try hysteroscopic resection due to the size of this tumor and my concern for blood loss and bleeding, not only intraoperatively but postoperatively. I also have taken to account that her hemoglobin is 8.7 today. I will discuss with her definitive treatment measures a later day. All other instruments were removed from the patient's vagina. The patient tolerated the procedure well and sent to recovery in stable condition. Lap and sponge counts were correct at the end of the procedure and instrument counts were correct as well. Job ID: [id number] DocumentID: [id number] Dictated Date: 10/22/2017 13:42:29 Levelman Date: 10/22/2017 22:50:09 Dictated By: NOÉ JOSHUA DO MTDD
== END 2017-10-22 14:40 | disposition home or self-care (01) ==
LOC: SDC 10:01
PROVIDERS: ATTEND Obstetrics & Gynecology
DX: N92.0 Excessive and frequent menstruation with regular cycle (principal); D25.0 Submucous leiomyoma of uterus; D62 Acute posthemorrhagic anemia
CPT/HCPCS: 36415; 84703; 85025; 86850; 86900; 86901; 87081; 94664

== ENCOUNTER 2018-01-05 08:30 | Outpatient (CLI) | payer OTHER ==
[~2018-01-05] VITALS: Ht 157.5 cm; Wt 52.2 kg
[~2018-01-05 08:30] MED LIST changes: +ACHD5005 PO; +HYDR-4226 PO; -HYDR-757 PO
== END 2018-01-05 09:40 | disposition home or self-care (01) ==
LOC: PREOP 08:30
PROVIDERS: ATTEND Obstetrics & Gynecology
DX: Z01.818 Encounter for other preprocedural examination (principal)

== ENCOUNTER 2020-06-01 05:36 | Outpatient (RCR) | payer OTHER ==
[~2020-06-01] VITALS: Ht 157.5 cm; Wt 59.0 kg
[~2020-06-01 05:36] MED LIST changes: -PANT40TA3 PO; +PANT40TA52 PO
== END 2020-06-04 12:24 | disposition home or self-care (01) ==
LOC: PREOP 05:36
PROVIDERS: ATTEND Surgery
DX: Z01.812 Encounter for preprocedural laboratory examination (principal); K92.1 Melena; Z20.822 Contact with and (suspected) exposure to COVID-19
CPT/HCPCS: 87635

== ENCOUNTER 2020-06-05 08:28 | Day surgery (SDC) | payer OTHER ==
[2020-06-05] VITALS (10 sets, daily range): BP systolic 86–121; BP diastolic 51–71
[~2020-06-05] VITALS: Ht 157 cm; Wt 59.0 kg
[2020-06-05] MEDS ORDERED: LACTATED RINGERS 1,000 ML IV STA (08:31)
[2020-06-05] MEDS ORDERED: LACTATED RINGERS 1,000 ML IV ONE (08:31)
--- NOTE | 2020-06-05 08:51 | Progress Note-Pre Operative ---
Pre-Operative Progress Note H&P Reviewed The H&P was reviewed, patient examined and no changes noted. Date Seen by Provider: Jun 05, 2020 Time Seen by Provider: 08:51 Date H&P Reviewed: Jun 05, 2020 Time H&P Reviewed: 08:51 Pre-Operative Diagnosis: hemorrhoids, hematochezia JEFFREY PEREZ DO Jun 05, 2020 08:51
[2020-06-05] MEDS ORDERED: MIDAZOLAM 2 MG/2 ML (VERSED) VIAL ONE (08:52)
[2020-06-05] MEDS ORDERED: PROPOFOL INJECTION 50 ML IV ONE (08:52)
--- NOTE | 2020-06-05 09:38 | Progress Note-Post Operative ---
Post-Operative Progess Note Surgeon (s)/Facility Engineer (s) Surgeon JEFFREY PEREZ DO Facility Engineer: na Pre-Operative Diagnosis hemorrhoids, hematochezia Post-Operative Diagnosis anorectal polyp, posterior fissure Procedure & Operative Findings Date of Procedure 06/05/20 Procedure Performed/Findings colonoscopy c cold biopsies of anorectal polyp Anesthesia Type animal rescuer Estimated Blood Loss Estimated blood loss (mL): minimal Specimens/Packing Specimens Removed anorectal polyp JEFFREY PEREZ DO Jun 05, 2020 09:38
--- NOTE | 2020-06-05 09:39 | Discharge Inst-Simple/Standard ---
Discharge Inst-Standard Patient Instructions/Follow Up Plan of Care/Instructions/FU: 2 weeks Hola Activity as Tolerated: Yes Discharge Diet: Regular Diet JEFFREY PEREZ DO Jun 05, 2020 09:39
--- NOTE | 2020-06-05 14:36 | OPERATIVE REPORT ---
DATE OF SERVICE: 06/05/2020 PREOPERATIVE DIAGNOSES: Hemorrhoids and hematochezia. POSTOPERATIVE DIAGNOSES: Anorectal polyp and posterior fissure. PROCEDURE PERFORMED: Colonoscopy with cold biopsy of the anorectal polyp. SURGEON: Jeffrey Simental DO. ANESTHESIA: Per JUNIOR BOOKKEEPER. ESTIMATED BLOOD LOSS: Minimal. COMPLICATIONS: None. INDICATIONS FOR PROCEDURE: The patient is a 44-year-old female with hematochezia and hemorrhoids. She understands the risks and benefits of procedure and wishes to proceed. Consent was signed in the chart. DESCRIPTION OF PROCEDURE: The patient was taken to the endoscopy suite and placed in the left lateral recumbent position. Timeout was performed. Digital rectal exam was performed. Anal skin tag present with posterior anal fissure on rectal exam noting more solid polyp at the anorectal junction. Some slight gross blood on exam. Scope was inserted into the rectum and advanced all the way to cecum with minimal difficulty. Prep was adequate. Scope was then slowly retracted back. There were no polyps, masses or ulcerations within the cecum, ascending, transverse, descending and sigmoid. Once in the rectum, scope was retroflexed noting anorectal polyp. Scope was returned to its normal position, slowly withdrawn. Multiple cold biopsies were obtained of the anorectal polyp. Scope was then slowly retracted back noting a posterior anal fissure. No other pathology noted. Scope was slowly withdrawn until completely removed. The patient tolerated the procedure well without any complications. RECOMMENDATIONS: Pending pathology reports. Job ID: [id number] DocumentID: [id number] Dictated Date: 06/05/2020 09:42:30 Airplane Patroller Date: 06/05/2020 11:28:10 Dictated By: JEFFREY SIMENTAL DO [facility]
--- NOTE | 2020-06-14 06:50 | Anesthesia-General Post-Op ---
MAC Significant Intra-Op Events Notes postop addendum for mac anesthesia on 06-05-20 at 1000 Patient Condition Mental Status/LOC: Same as Preop Cardiovascular: Satisfactory Nausea/Vomiting: Absent Respiratory: Satisfactory Pain: Controlled Complications: Absent Post Op Complications Complications None Follow Up Care/Instructions Patient Instructions None needed. Anesthesiology Discharge Order Discharge Order Patient is doing well, no complaints, stable vital signs, no apparent adverse anesthesia problems. No complications reported per nursing. ANASTASIA PABLO CRNA Jun 14, 2020 06:50
== END 2020-06-05 10:40 | disposition home or self-care (01) ==
LOC: ENDO 08:28
PROVIDERS: ATTEND Surgery
DX: K64.8 Other hemorrhoids (principal); K64.4 Residual hemorrhoidal skin tags; K92.1 Melena; K62.1 Rectal polyp; K60.2 Anal fissure, unspecified; D62 Acute posthemorrhagic anemia; K21.9 Gastro-esophageal reflux disease without esophagitis; Z79.899 Other long term (current) drug therapy; Z88.8 Allergy status to other drugs, medicaments and biological substances; Z90.711 Acquired absence of uterus with remaining cervical stump
CPT/HCPCS: 88305

== ENCOUNTER 2020-06-26 05:36 | Outpatient (RCR) | payer OTHER ==
[~2020-06-26] VITALS: Ht 157.5 cm; Wt 56.8 kg
== END 2020-06-26 14:16 | disposition home or self-care (01) ==
LOC: PREOP 05:36
PROVIDERS: ATTEND Surgery
DX: Z01.818 Encounter for other preprocedural examination (principal); K60.2 Anal fissure, unspecified; Z20.822 Contact with and (suspected) exposure to COVID-19
CPT/HCPCS: 87635

== ENCOUNTER 2020-06-28 07:09 | Day surgery (SDC) | payer OTHER ==
[~2020-06-28] VITALS: Ht 157.5 cm; Wt 56.8 kg
[2020-06-28] VITALS (10 sets, daily range): BP systolic 105–123; BP diastolic 59–70
[2020-06-28] MEDS: LACTATED RINGERS 1,000 ML IV PRN ×2 (07:40→09:56)
[2020-06-28] MEDS ORDERED: ceFAZolin INJECTION 1,000 MG ONE (07:50)
[2020-06-28] MEDS ORDERED: WATER (STERILE) FOR INJECTION 10 ML ONE (07:51)
--- NOTE | 2020-06-28 08:02 | Progress Note-Pre Operative ---
Pre-Operative Progress Note H&P Reviewed The H&P was reviewed, patient examined and no changes noted. Date Seen by Provider: Jun 28, 2020 Time Seen by Provider: 08:02 Date H&P Reviewed: Jun 28, 2020 Time H&P Reviewed: 08:02 Pre-Operative Diagnosis: anal fissure JEFFREY PEREZ DO Jun 28, 2020 08:02
[2020-06-28] MEDS ORDERED: LIDOCAINE/EPI 1%-1:100,000 (XYLOCAINE) 50 ML ONE (08:27)
[2020-06-28] MEDS ORDERED: LIDOCAINE PF 2% 5 ML (XYLOCAINE) VIAL ONE (08:29)
[2020-06-28] MEDS ORDERED: ONDANSETRON 4 MG/2 ML (SDV) Z0FRAN ONE (08:29)
[2020-06-28] MEDS ORDERED: proPOfol 200 MG/20 ML (DIPRIVAN) VIAL IV ONE (08:29)
[2020-06-28] MEDS ORDERED: SEVOFLURANE (ULTANE) 15 ML INHAL SOLN ONE ×2 (08:29→09:10)
[2020-06-28] MEDS ORDERED: ceFAZolin INJECTION 1,000 MG in WATER (STERILE) FOR INJECTION 10 ML IV ONE (08:30)
[2020-06-28] MEDS ORDERED: fentaNYL INJECTION 100 MCG/2 ML AMP ONE (08:30)
[2020-06-28] MEDS ORDERED: MIDAZOLAM 2 MG/2 ML (VERSED) VIAL ONE (08:30)
[2020-06-28] MEDS ORDERED: GLYCOPYRROLATE 0.2 MG/ML (ROBINUL) 2 ML VIAL ONE (09:00)
[2020-06-28] MEDS ORDERED: PHENYLEPHRINE 100 MCG/ML 10 ML (ANESTHESIA) SYR ONE (09:09)
--- NOTE | 2020-06-28 09:28 | Progress Note-Post Operative ---
Post-Operative Progess Note Surgeon (s)/Broommaker (s) Surgeon JEFFREY PEREZ DO Broommaker: na Pre-Operative Diagnosis posterior anal fissure Post-Operative Diagnosis posterior anal fissure Procedure & Operative Findings Date of Procedure 06/28/20 Procedure Performed/Findings exam under anesthesia open left internal sphincterotomy Anesthesia Type general Estimated Blood Loss Estimated blood loss (mL): minimal Specimens/Packing Specimens Removed na JEFFREY PEREZ DO Jun 28, 2020 09:28
[2020-06-28] MEDS ORDERED: ACHD5005 PO (09:36)
[2020-06-28] MEDS ORDERED: DOCU-143 PO (09:36)
--- NOTE | 2020-06-28 09:39 | Discharge Inst-Simple/Standard ---
Discharge Inst-Standard Discharge Medications New, Converted or Re-Newed RX: RX on Chart Patient Instructions/Follow Up Plan of Care/Instructions/FU: 2 weeks Hola Activity as Tolerated: Yes Discharge Diet: Regular Diet Other Inst to Patient Follow up Appt: Make appointment for 2 week. Instructions: No lifting greater than 10 pounds. No strenuous activity. May shower in 24 hours, no tub bath or soaking. Use incentive spirometer at home as directed. No Smoking Skin/Wound Care: You have a packing in the bottom, it will fall out on its own, if not out in 24 hours, can pull it out. Sitz baths two times a day and after bowel movements. Keep stools soft using stool softener. If no bowel movement in two days, can take miralax over the counter. Symptoms to Report: Appetite Changes, Extremity Discoloration, Numbness/Tingling, Swelling Increased, Bleeding Excessive, Eyesight Changes, Pain Increased, Urine Color Change, Constipation(Persistent), Fever over 101 degree F, Pain/Pressure in chest, Urinating Difficulty, Cough Up/Vomit Blood, Heart Beat Irreg/Pounding, Pain/Pressure in jaw, Vaginal Bleeding Increase, Cramps in feet or legs, Lightheadedness, Pain/Pressure in shoulder, Diarrhea(Persistent), Memory Changes Suddenly, Questions/Concerns, Weight gain consecutive days, Dizziness/Fainting, Nausea/Vomiting, Shortness of Breath, Weight gain over 2 pounds If questions or concerns contact your physician Or seek help at emergency department. JEFFREY PEREZ DO Jun 28, 2020 09:38
[2020-06-28] MEDS ORDERED: ONDANSETRON 4 MG/2 ML (SDV) Z0FRAN IVP PRN (09:45)
[2020-06-28] MEDS ORDERED: HYDROmorphone 2 MG/ML VIAL (DILAUDID) IV ONE (09:45)
[2020-06-28] MEDS ORDERED: morphine INJ 10 MG/ML 1ML (SYR OR VIAL) IVP ONE (09:45)
[2020-06-28] MEDS ORDERED: MEPERIDINE (DEMEROL) INJ 50 MG/ML IVP ONE (09:45)
--- NOTE | 2020-06-28 10:23 | Anesthesia-General Post-Op ---
General Patient Condition Mental Status/LOC: Same as Preop Cardiovascular: Satisfactory Nausea/Vomiting: Absent Respiratory: Satisfactory Pain: Controlled Complications: Absent Post Op Complications Complications None Follow Up Care/Instructions Patient Instructions None needed. Anesthesia/Patient Condition Patient Condition Patient is doing well, no complaints, stable vital signs, no apparent adverse anesthesia problems. No complications reported per nursing. SIRENA MCKNIGHT CRNA Jun 28, 2020 10:23
--- NOTE | 2020-06-28 15:22 | OPERATIVE REPORT ---
DATE OF SERVICE: 06/28/2020 PREOPERATIVE DIAGNOSIS: Posterior anal fissure. POSTOPERATIVE DIAGNOSIS: Posterior anal fissure. PROCEDURE: Exam under anesthesia, open left lateral internal sphincterotomy. SURGEON: Jeffrey Simental DO ANESTHESIA: General. ESTIMATED BLOOD LOSS: Minimal. COMPLICATIONS: None. 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 She continues to have pain and bleeding. She understands risks and benefits of procedure and wished to proceed with procedure. Consent was signed in the chart. DESCRIPTION OF PROCEDURE: The patient was taken to the operating suite, placed in lithotomy position. The patient was prepped and draped in sterile fashion. Timeout was performed. Digital rectal exam was performed noting posterior anal fissure with sentinel pile and hypertrophied anal papilla. No other pathology noted. The retractor was inserted into the anus. The internal sphincter was then able to be palpated. A 15-blade scalpel was used to make a small skin incision on the left lateral position. Hemostat was used to dissect around the internal sphincter, which was then brought up and cautery was used to transect through the portion of the internal sphincter that was brought up. On initial digital rectal exam, the patient increased rectal tone, very tight; after sphincterotomy was performed, this had loosened significantly. The anus then had a Gelfoam and Vaseline gauze plug inserted into the anus for compression to help achieve hemostasis and the area was washed and dried and sterile bandage was applied. The patient tolerated procedure well without any complications. She was taken to recovery room in stable condition. Job ID: [id number] DocumentID: [id number] Dictated Date: 06/28/2020 14:18:28 Or Manager Date: 06/28/2020 15:21:52 Dictated By: JEFFREY SIMENTAL DO
[2020-06-29] MEDS ORDERED: LIDO113G3 TP (14:21)
== END 2020-06-28 11:45 | disposition home or self-care (01) ==
LOC: SDC 07:09
PROVIDERS: ATTEND Surgery
DX: K60.2 Anal fissure, unspecified (principal); K21.9 Gastro-esophageal reflux disease without esophagitis; D50.0 Iron deficiency anemia secondary to blood loss (chronic); Z79.899 Other long term (current) drug therapy; Z88.8 Allergy status to other drugs, medicaments and biological substances; Z90.711 Acquired absence of uterus with remaining cervical stump
CPT/HCPCS: 84703; 87081

== ENCOUNTER 2020-06-29 12:46 | Emergency (ER) | payer OTHER ==
[~2020-06-29] VITALS: Ht 157 cm; Wt 54.4 kg
[~2020-06-29 12:46] MED LIST changes: +DOCU-143 PO
--- NOTE | 2020-06-29 13:01 | ED GI ---
General Stated Complaint: S/P FISSURE REMOVAL, PAIN History of Present Illness Date Seen by Provider: Jun 29, 2020 Time Seen by Provider: 13:01 Initial Comments 44-year-old female presents with rectal pain. Patient had surgery for rectal fissure by Dr. Simental yesterday. Patient presents today with significant pain. Patient was given hydrocodone but states is not helping. No fevers chills or other systemic complaints Allergies and Home Medications Allergies Coded Allergies: sumatriptan (Verified Allergy, Severe, throat felt swollen, 06/05/20) Home Medications Docusate Sodium 100 Mg Capsule, 100 MG PO BID Prescribed by: JEFFREY SIMENTAL on 06/28/20 0936 Hydrocodone/Acetaminophen 1 Each Tablet, 1 EACH PO Q4H PRN for PAIN-MODERATE (5- 7) Prescribed by: JEFFREY SIMENTAL on 06/28/20 0936 Lidocaine 113 Gm Gel..gram., 1 APPLIC TP TID Prescribed by: FABIO REARDON on 06/29/20 1421 Pantoprazole Sodium 40 Mg Tablet.dr, 40 MG PO DAILY, (Reported) Patient Home Medication List Home Medication List Reviewed: Yes Review of Systems Review of Systems Constitutional: No chills, No fever EENTM: No Symptoms Reported Respiratory: No Symptoms Reported Cardiovascular: No Symptoms Reported Gastrointestinal: See HPI Genitourinary: No Symptoms Reported Musculoskeletal: no symptoms reported Skin: no symptoms reported Past Kdiffqf-Wukwxd-Pkwnro Hx Past Med/Social Hx: Reviewed Nursing Past Med/Soc Hx Patient Social History 2nd Hand Smoke Exposure: No Recent Hopitalizations: No Seasonal Allergies Seasonal Allergies: Yes Past Medical History Surgeries: Yes (D&C X3) Respiratory: No Currently Using CPAP: No Currently Using BIPAP: No Cardiac: No Neurological: Yes Headaches /Migraines Reproductive Disorders: Yes (INTRAUTERINE MASS) Sexually Transmitted Disease: No HIV/AIDS: No Genitourinary: No Gastrointestinal: Yes Gastroesophageal Reflux Musculoskeletal: No Endocrine: No HEENT: No Loss of Vision: Bilateral Hearing Impairment: Denies Cancer: No Psychosocial: No Integumentary: No Blood Disorders: Yes (ANEMIA) Adverse Reaction/Blood Tranf: No (HAS HAD BLOOD WITH NO REACTION) Family Medical History Patient reports no known family medical history. Physical Exam Vital Signs Vital Signs - First Documented 06/29/20 13:18 Temp 37.2 Pulse 84 Resp 18 B/P (MAP) 107/85 (92) Pulse Ox 98 Capillary Refill : Height/Weight/BMI Height: 5'2.00" Weight: 115lbs. 0.0oz. 52.138831ex; 22.89 BMI Method: General Appearance: moderate distress Respiratory: lungs clear, normal breath sounds Cardiovascular: normal peripheral pulses, regular rate, rhythm Rectal: other (Rectal packing in place, significant tenderness) Extremities: normal range of motion Neurologic/Psychiatric: alert, normal mood/affect, oriented x 3 Skin: normal color, warm/dry Progress/Results/Core Measures Results/Orders Lab Results Laboratory Tests Test 06/29/20 13:08 Range/Units White Blood Count 14.6 H 4.3-11.0 10^3/uL Red Blood Count 4.20 3.80-5.11 10^6/uL Hemoglobin 12.2 11.5-16.0 g/dL Hematocrit 36 35-52 % Mean Corpuscular Volume 86 80-99 fL Mean Corpuscular Hemoglobin 29 25-34 pg Mean Corpuscular Hemoglobin Concent 34 32-36 g/dL Red Cell Distribution Width 12.6 10.0-14.5 % Platelet Count 255 130-400 10^3/uL Mean Platelet Volume 10.7 9.0-12.2 fL Immature Granulocyte % (Auto) 1 % Neutrophils (%) (Auto) 71 42-75 % Lymphocytes (%) (Auto) 22 12-44 % Monocytes (%) (Auto) 6 0-12 % Eosinophils (%) (Auto) 0 0-10 % Basophils (%) (Auto) 0 0-10 % Neutrophils # (Auto) 10.4 H 1.8-7.8 10^3/uL Lymphocytes # (Auto) 3.2 1.0-4.0 10^3/uL Monocytes # (Auto) 0.9 0.0-1.0 10^3/uL Eosinophils # (Auto) 0.0 0.0-0.3 10^3/uL Basophils # (Auto) 0.0 0.0-0.1 10^3/uL Immature Granulocyte # (Auto) 0.1 0.0-0.1 10^3/uL Neutrophils % (Manual) 0 % Lymphocytes % (Manual) 19 % Monocytes % (Manual) 3 % Eosinophils % (Manual) 0 % Basophils % (Manual) 0 % Band Neutrophils 78 % Blood Morphology Comment NORMAL Sodium Level 137 135-145 MMOL/L Potassium Level 3.3 L 3.6-5.0 MMOL/L Chloride Level 103 98-107 MMOL/L Carbon Dioxide Level 23 21-32 MMOL/L Anion Gap 11 5-14 MMOL/L Blood Urea Nitrogen 7 7-18 MG/DL Creatinine 0.71 0.60-1.30 MG/DL Estimat Glomerular Filtration Rate > 60 BUN/Creatinine Ratio 10 Glucose Level 103 70-105 MG/DL Calcium Level 8.8 8.5-10.1 MG/DL My Orders Orders - REARDON,FABIO L DO Basic Metabolic Panel (06/29/20 13:01) Cbc With Automated Diff (06/29/20 13:01) Ketamine Syringe (Ed Only) (Ketamine Syr (06/29/20 13:15) Ns (Ivpb) (Sodium Chloride 0.9%) (06/29/20 13:06) Manual Differential (06/29/20 13:08) Lidocaine 2% Jelly 5 Ml (Xylocaine Jelly (06/29/20 13:45) Fentanyl Injection (Sublimaze Injection (06/29/20 14:44) Fentanyl Injection (Sublimaze Injection (06/29/20 15:00) Medications Given in ED Current Medications Medications Dose Ordered Sig/Tika Route Start Time Stop Time Status Last Admin Dose Admin Fentanyl Citrate 50 mcg ONCE PRN IVP 06/29/20 15:00 06/29/20 14:53 50 MCG Ketamine HCl 15 mg ONCE ONCE IV 06/29/20 13:15 06/29/20 13:16 DC 06/29/20 13:15 15 MG Lidocaine HCl 5 ml ONCE ONCE TOP 06/29/20 13:45 06/29/20 13:46 DC 06/29/20 14:44 5 ML Sodium Chloride 250 ml @ ST[facility]-MED ONCE .ROUTE 06/29/20 13:06 06/29/20 13:13 DC 06/29/20 13:16 250 MLS/HR Vital Signs/I&O 06/29/20 13:18 Temp 37.2 Pulse 84 Resp 18 B/P (MAP) 107/85 (92) Pulse Ox 98 Progress Progress Note : Time: 14:52 Progress Note Called and discussed with Dr. Simental. Rectal packing was removed since patient was supposed to remove it this morning. We then used lidocaine jelly topical for pain control. Patient still has some mild pain. She did get some ketamine and fentanyl while in the ER. I will prescribe her lidocaine jelly to use 3 times a day per Dr. Simental's instructions. She continue to use the lidocaine. Discussed with her and her spouse that pain will not go to 0 but we are trying to get it controlled. She should follow-up with Dr. Simental with any further concerns. Departure Impression Primary Impression: Rectal fissure Additional Impression: Postoperative pain Disposition: HOME, SELF-CARE Condition: Stable Departure-Patient Inst. Referrals: FRANCK MIRANDA DO (PCP/Family) Primary Care Physician Patient Instructions: Anal Fissure (DC) Add. Discharge Instructions: Use the topical gel 3 times a day Use prescribed hydrocodone as directed Follow-up with Dr. Simental next week for recheck of today's Drink plenty of fluids, use stool softeners as directed by Dr. Simental Scripts Lidocaine (Topicaine) 113 Gm Gel..gram. 1 APPLIC TP TID, #1 TUBE Prov: FABIO REARDON DO 06/29/20 FABIO REARDON DO Jun 29, 2020 13:01
[2020-06-29] MEDS ORDERED: NS (IVPB) 250 ML ONE (13:06)
[2020-06-29] MEDS ORDERED: KETAMINE/NaCl 50 MG/5 ML SYRINGE (ED ONLY) IV ONE (13:15)
[2020-06-29 13:17] LABS: BASOPHILS % (AUTO) 0 % (0-10); EOSINOPHILS % (AUTO) 0 % (0-10); HEMATOCRIT 36 % (35-52); HEMOGLOBIN 12.2 g/dL (11.5-16.0); LYMPHOCYTES # (AUTO) 3.2 10^3/uL (1.0-4.0); LYMPHOCYTES % (AUTO) 22 % (12-44); MEAN CORPUSCULAR HEMOGLOBIN 29 pg (25-34); MEAN CORPUSCULAR HGB CONC 34 g/dL (32-36); MEAN CORPUSCULAR VOLUME 86 fL (80-99); MEAN PLATELET VOLUME 10.7 fL (9.0-12.2); MONOCYTES # (AUTO) 0.9 10^3/uL (0.0-1.0); MONOCYTES % (AUTO) 6 % (0-12); NEUTROPHILS # (AUTO) 10.4 10^3/uL (1.8-7.8); NEUTROPHILS % (AUTO) 71 % (42-75); PLATELET COUNT 255 10^3/uL (130-400); WHITE BLOOD COUNT 14.6 10^3/uL (4.3-11.0)
[2020-06-29 13:29] LABS: CALCIUM 8.8 MG/DL (8.5-10.1); CHLORIDE 103 MMOL/L (98-107); POTASSIUM 3.3 MMOL/L (3.6-5.0); SODIUM 137 MMOL/L (135-145)
[2020-06-29 13:30] LABS: GLUCOSE 103 MG/DL (70-105)
[2020-06-29 13:31] LABS: CARBON DIOXIDE 23 MMOL/L (21-32)
[2020-06-29 13:34] LABS: CREATININE SERUM 0.71 MG/DL (0.60-1.30); GFR ESTIMATED > 60
[2020-06-29 13:35] LABS: BUN/CREATININE RATIO 10
[2020-06-29 13:36] LABS: BAND NEUTROPHILS 78 %; BASOPHILS % (MANUAL) 0 %; EOSINOPHILS % (MANUAL) 0 %; LYMPHOCYTES % (MANUAL) 19 %; MONOCYTES % (MANUAL) 3 %; NEUTROPHILS % (MANUAL) 0 %; RBC MORPH NORMAL
[2020-06-29] MEDS ORDERED: LIDOCAINE JELLY 2% (XYLOCAINE) 5 ML TUBE TOP ONE (13:45)
[2020-06-29] MEDS ORDERED: LIDO113G3 TP (14:21)
[2020-06-29] MEDS ORDERED: fentaNYL INJECTION 100 MCG/2 ML AMP ONE (14:44)
[2020-06-29] MEDS ORDERED: fentaNYL INJECTION 100 MCG/2 ML AMP IVP PRN (15:00)
[2020-06-29 15:36] VITALS: BP 124/65
== END 2020-06-29 15:36 | disposition home or self-care (01) ==
LOC: EDUNIT# 12:46 → ER 12:49
DX: K60.2 Anal fissure, unspecified (principal); G89.18 Other acute postprocedural pain; K21.9 Gastro-esophageal reflux disease without esophagitis; Z88.8 Allergy status to other drugs, medicaments and biological substances
CPT/HCPCS: 36415; 80048; 85007; 85027

== ENCOUNTER 2021-06-12 05:30 | Outpatient (CLI) | payer SELFPAY ==
[~2021-06-12] VITALS: Ht 152.4 cm
[~2021-06-12 05:30] MED LIST changes: +LIDO113G3 TP
[2021-06-17] MEDS ORDERED: CETI10TA24 PO (11:12)
== END 2021-06-17 11:20 | disposition home or self-care (01) ==
LOC: PREOP 05:30
PROVIDERS: ATTEND Surgery
DX: Z01.818 Encounter for other preprocedural examination (principal)

== ENCOUNTER 2021-06-20 06:49 | Day surgery (SDC) | payer OTHER ==
[2021-06-20] VITALS (10 sets, daily range): BP systolic 107–119; BP diastolic 62–74
[~2021-06-20] VITALS: Ht 157.5 cm; Wt 55.4 kg
[~2021-06-20 06:49] MED LIST changes: +CETI10TA24 PO
[2021-06-20] MEDS ORDERED: ceFAZolin INJECTION 1,000 MG VIAL IV ONE (07:00)
[2021-06-20] MEDS: LACTATED RINGERS 1,000 ML IV PRN ×2 (07:29→10:24)
--- NOTE | 2021-06-20 08:16 | Progress Note-Pre Operative ---
Pre-Operative Progress Note H&P Reviewed The H&P was reviewed, patient examined and no changes noted. Date Seen by Provider: Jun 20, 2021 Time Seen by Provider: 08:16 Date H&P Reviewed: Jun 20, 2021 Time H&P Reviewed: 08:16 Pre-Operative Diagnosis: cholelithiasis JEFFREY PEREZ DO Jun 20, 2021 08:16
[2021-06-20] MEDS ORDERED: LIDOCAINE/EPI 1%-1:200,000 (XYLOCAINE) 30 ML VIAL ONE (08:56)
[2021-06-20] MEDS ORDERED: DOCU-143 PO (09:46)
[2021-06-20] MEDS ORDERED: ACHD5005 PO (09:46)
--- NOTE | 2021-06-20 09:47 | Discharge Inst-Simple/Standard ---
Discharge Inst-Standard Discharge Medications New, Converted or Re-Newed RX: Transmitted to Pharmacy Patient Instructions/Follow Up Plan of Care/Instructions/FU: 2-3 weeks gaston Activity as Tolerated: No Discharge Diet: Regular Diet Other Inst to Patient Follow up Appt: Make appointment for 2-3 weeks. Instructions: No lifting greater than 10 pounds. No strenuous activity. May shower in 24 hours, no tub bath or soaking. Use incentive spirometer at home as directed. No Smoking Skin/Wound Care: You have special glue over incision, it will fall off on it's own. Symptoms to Report: Appetite Changes, Extremity Discoloration, Numbness/Tingling, Swelling Increased, Bleeding Excessive, Eyesight Changes, Pain Increased, Urine Color Change, Constipation(Persistent), Fever over 101 degree F, Pain/Pressure in chest, Urinating Difficulty, Cough Up/Vomit Blood, Heart Beat Irreg/Pounding, Pain/Pressure in jaw, Vaginal Bleeding Increase, Cramps in feet or legs, Lightheadedness, Pain/Pressure in shoulder, Diarrhea(Persistent), Memory Changes Suddenly, Questions/Concerns, Weight gain consecutive days, Dizziness/Fainting, Nausea/Vomiting, Shortness of Breath, Weight gain over 2 pounds. If eyes or skin turn yellow notify physician. If questions or concerns contact your physician Or seek help at emergency department. JEFFREY PEREZ DO Jun 20, 2021 09:47
--- NOTE | 2021-06-20 09:48 | Progress Note-Post Operative ---
Post-Operative Progess Note Surgeon (s)/Manager Cost (s) Surgeon JEFFREY PEREZ DO Manager Cost: Dr. Dennis to assist in retraction dissction and closure. Pre-Operative Diagnosis cholelithiasis Post-Operative Diagnosis same Procedure & Operative Findings Date of Procedure 06/20/21 Procedure Performed/Findings PROCEDURE: Laparoscopic cholecystectomy with intraoperative cholangiogram. COMPLICATIONS: None. PROCEDURE: The patient was taken to the operating suite and was prepped and draped in sterile fashion. A surgical pause was performed. Just superior to the umbilicus, a 12 mm incision was made. Dissection was taken down to the fascia, which was then scored and grasped with a Jossy and the abdomen was then entered. A 0 Vicryl suture was placed in a [id number] fashion and a Taveras trocar was placed and secured. Pneumoperitoneum was achieved. A 5mm trochar place in the subxyphoid and 2 in the right upper quadrant. The gallbladder was then grasped and elevated. The cystic duct, and cystic artery were then dissected out. Clip was placed on the distal portion of the cystic duct which was then partially transected. An arrow catheter was inserted into the duct. The cholangiogram was then performed. No filing defects and contrast made its way into the duodenum. Catheter removed. Clips were placed on proximal portion of the cystic duct and then the duct was then transected. Clips were placed along the proximal and distal portion of the cystic artery which was then transected. Hook cautery was used to dissect the gallbladder from the gallbladder fossa achieving hemostasis. The gallbladder was placed in an Endobag and removed through the 12 mm trocar site. The abdomen was then reinspected. Copious amounts of irrigation were used to irrigate the abdomen and there were no signs of active bleeding. Hemostasis had been achieved. The 12 mm fascial defect was then closed with 0 Vicryl suture that had been placed in a [id number] fashion. The abdomen was then desufflated, the trocars were removed. The abdomen was then washed and dried. The skin was then closed using 4-0 Monocryl in a subcuticular fashion. The abdomen was washed and dried and Skin Affix was place over incisions. Patient tolerated the procedure well without any complications and was taken to the recovery room in stable condition. Anesthesia Type general Estimated Blood Loss Estimated blood loss (mL): minimal Specimens/Packing Specimens Removed gallbladder JEFFREY PEREZb 17, 2022 09:48
--- NOTE | 2021-06-20 10:10 | Anesthesia-General Post-Op ---
General Patient Condition Mental Status/LOC: Same as Preop Cardiovascular: Satisfactory Nausea/Vomiting: Absent Respiratory: Satisfactory Pain: Controlled Complications: Absent Post Op Complications Complications None Follow Up Care/Instructions Patient Instructions None needed. Anesthesia/Patient Condition Patient Condition Patient is doing well, no complaints, stable vital signs, no apparent adverse anesthesia problems. No complications reported per nursing. RAFAEL FLEMING CRNA Jun 20, 2021 10:10
[2021-06-20] MEDS ORDERED: fentaNYL INJ 100 MCG/2 ML AMP IVP ONE (10:15)
[2021-06-20] MEDS ORDERED: morphine INJ 10 MG/ML 1ML (SYR OR VIAL) IVP ONE (10:15)
[2021-06-20] MEDS ORDERED: ONDANSETRON 4 MG/2 ML (SDV) Z0FRAN IVP PRN (10:15)
[2021-06-20] MEDS ORDERED: MEPERIDINE (DEMEROL) INJ 50 MG/ML IVP ONE (10:15)
[2021-06-20] MEDS ORDERED: fentaNYL INJ 100 MCG/2 ML AMP ONE (10:20)
--- NOTE | 2021-06-20 10:28 | Diagnostic Imaging Report ---
INDICATION: Cholecystitis. COMPARISON: None Total fluoroscopy time: 6 seconds Total number of fluoroscopic images obtained: 28 DETAILS OF PROCEDURE: Multiple intraoperative image intensifier and digital subtraction views of the right upper abdominal quadrant were obtained during intraoperative cholangiogram. Images provided show contrast filling of the intra and extrahepatic biliary ductal systems. There is subtle filling defect along the medial sidewall of the common bile duct. This however may be artifact. There is otherwise no focal stricture, biliary distention, or other evidence of obstruction. Contrast empties into the small bowel, as expected. Please note, interpreting radiologist was not present during the procedure. IMPRESSION: 1. Fluoroscopic guidance provided during intraoperative cholangiogram, as above. Dictated by: Dictated on workstation # [id number]
[2021-06-20] MEDS ORDERED: IOHEXOL 300 MG/ML 30 ML (OMNIPAQUE 300) VIAL INJ ONE (10:30)
[2021-06-20] MEDS ORDERED: HYDROcodone/APAP 5 MG/325 MG (LORTAB) TAB ONE (11:05)
[2021-06-20] MEDS ORDERED: HYDROcodone/APAP 5 MG/325 MG (LORTAB) TAB PO ONE (11:15)
== END 2021-06-20 13:33 ==
LOC: SDC 06:49
PROVIDERS: ATTEND Surgery
DX: K80.12 Calculus of gallbladder with acute and chronic cholecystitis without obstruction (principal); K21.9 Gastro-esophageal reflux disease without esophagitis; Z79.899 Other long term (current) drug therapy
CPT/HCPCS: 76000; 84703; 87081; 88304; 94664